=== PATIENT | male | born 1990 | race Hispanic/Latino ===

== ENCOUNTER 2024-10-20 19:45 | Emergency (ER) | payer SELFPAY ==
[~2024-10-20] VITALS: Ht 180.3 cm; Wt 147.9 kg
[2024-10-20] MEDS: IpraTROPium/alBUTERol SULFATE 3 ML SOLUTION IH ONE (20:48)
[2024-10-20 20:49] VITALS: PULSE 92; RESP 18
[2024-10-20] MEDS: dexaMETHasone SOD PHOSPHATE 4 MG/ML 1ML VIAL IM ONE (21:01)
[2024-10-20 21:25] LABS: SARS-CoV-2, RNA, NAAT NEGATIVE SARS CoV-2 (NEGATIVE)
[2024-10-20 21:26] LABS: RAPID GROUP A STREP negative (NEGATIVE)
[2024-10-20 21:34] LABS: INFLUENZA TYPE A Negative For Type A (NEGATIVE); INFLUENZA TYPE B Negative For Type B (NEGATIVE)
[2024-10-20] MEDS ORDERED: AZIT250T9 PO (22:15)
[2024-10-20] MEDS ORDERED: METH4TAB3 PO (22:15)
--- NOTE | 2024-10-20 22:15 | HMCIMG ---
CHEST 1VW HISTORY: Pneumonia COMPARISON: 11/01/2000 FINDINGS: A frontal projection of the chest was obtained. Mild bilateral pulmonary infiltrates are seen may be related to mild pulmonary vascular congestion with possible superimposed pneumonitis. The heart is normal in size. Degenerative changes are seen. No evidence of aortic calcification is seen. IMPRESSION: 1. Mild bilateral pulmonary infiltrates are seen may be related to mild pulmonary vascular congestion with possible superimposed pneumonitis.
--- NOTE | 2024-10-20 22:19 | ERN ---
General Chief Complaint: Cough Stated Complaint: LUNG PROBLEMS, SOB, COUGH Time Seen by MD: 19:48 Time Seen by Midlevel: 19:48 Source: patient History of Present Illness Initial Comments Patient is a 34-year-old male with no significant past medical history presenting to the emergency department with a cough and congestion that has been ongoing for the last couple of days. Patient states his daughter was sick with RSV last week and believes he may have gotten RSV from her. Over the last couple of days he has developed an increase shortness of breath along with cough and subjective fevers at home. He has been using an albuterol inhaler and nebulizer treatment at homes with temporary relief. Denies any other symptoms at this time. Allergies: Coded Allergies: No Known Allergies (Unverified Allergy, Unknown, 10/20/24) Past Medical History Past Medical History: No Pertinent History Past Surgical History: None ROS Dictation CONSTITUTIONAL: Negative except for HPI HEAD/FACE: Negative except for HPI EENT: Negative except for HPI RESPIRATORY: Negative except for HPI GASTROINTESTINAL/ABDOMINAL: Negative except for HPI GENITOURINARY: Negative except for HPI MUSCULOSKELETAL: Negative except for HPI INTEGUMENTARY: Negative except for HPI NEUROLOGICAL/PSYCH: Negative except for HPI HEMATOLOGIC/LYMPHATIC: Negative except for HPI All Systems Negative, Except as noted above. 13 point review of systems assessed and all negative except for above. Physical Exam Physical Exam Dictation Vital Signs reviewed General Appearance: Alert, oriented x 3, no acute distress, well developed, nourished. Head and Face: non-traumatic. Eyes: PERRL, pink conjunctivas, eyelid no trauma, anterior chamber with arcus senilis. Ears: Pinnas intact and no signs of trauma or erythema ear canals clear and no discharge TM no erythema Nose: No discharge, no bleeding. Oropharynx: Mouth normal, tongue pink, pharynx clear,no erythema, tonsils no exudates, no abscesses noted, mucous membrane moist Neck: Supple, non-tender, no thyromegaly, no masses, no JVD, no bruits Breast:Deferred Chest:No tenderness, no crepitus, no paradoxical movement, no retractions Lungs: Expiratory wheezing to bilateral lung ybarra Heart: Regular rate, regular rhythm, no murmur, no gallops Vascular: no peripheral edema, Abdomen: Soft, positive bowel sounds, nondistended, no guarding, nontender, no rebound, no masses no hepatomegaly, no splenomegaly, no Adkins's sign, no hernias. Rectal: Deferred Genital: Deferred Neurological: Normal speech, motor function intact, sensory function intact Musculoskeletal: Neck nontender, full range of motion, back nontender, full range of motion, Extremities: nontender, full range of motion Skin: Color pink, dry, no turgor, no rash, no lacerations, no abrasions, no contusions. Lymphatic: Deferred Results Laboratory and Microbiology Lab and Micro Result Laboratory Tests Test 10/20/24 20:07 Influenza Type A Antigen Negative For Type A Influenza Type B Antigen Negative For Type B SARS-CoV-2, RNA, NAAT NEGATIVE SARS CoV-2 Group A Streptococcus Rapid negative (NEGATIVE) Labs Reviewed?: Yes MDM MDM: Patient is a 34-year-old male with no significant past medical history presenting to the emergency department with a cough and congestion that has been ongoing for the last couple of days. Patient states his daughter was sick with RSV last week and believes he may have gotten RSV from her. Over the last couple of days he has developed an increase shortness of breath along with cough and subjective fevers at home. He has been using an albuterol inhaler and nebulizer treatment at homes with temporary relief. Denies any other symptoms at this time. On physical examination patient is in no acute respiratory distress. His lung examination is remarkable for expiratory wheezing to bilateral lung ybarra. Respiratory swabs are negative. His chest x-ray is consistent with pneumonitis. Patient was given a breathing treatment in the emergency department with improvement of wheezing. Patient will be discharged home with the azithromycin and a Medrol pack for outpatient management. Patient was advised that if he does not get better over the next 48 hours he was to return to the ER for further evaluation. Differential diagnosis: Pneumonia, pneumonitis, acute bronchitis, viral syndrome There are no social concerns with this patient. Prescription drug management Prescriptions will include: Azithromycin and Medrol pack Medical management and examination interpretation discussions were had by me with other qualified healthcare professionals as indicated for the patient's care. ED Course Orders Procedure Category Date Status Time Covid Rna Naat LAB 10/20/24 Complete 20:07 Influenza Type A & B, LAB 10/20/24 Complete Rapid 20:07 Rapid (Group A Strep) LAB 10/20/24 Complete 20:07 Chest 1vw RAD 10/20/24 Taken 20:13 Ipratropium/Albuterol PHA 10/20/24 Complete Neb (Duoneb) 20:30 Dexamethasone 4mg/Ml PHA 10/20/24 Complete 1ml Vial (Dexametha 20:30 Current Medications Medications (Trade) Dose Ordered Sig/Nathan Route PRN Reason Start Time Stop Time Status Last Admin Dose Admin Albuterol (DUOneb) 1 UDVIAL ONCE ONCE IH 10/20/24 20:30 10/20/24 20:31 DC 10/20/24 20:48 Dexamethasone Sodium Phosphate (dexaMETHasone 4MG/ML 1ML VIAL) 10 mg ONCE ONCE IM 10/20/24 20:30 10/20/24 20:31 DC 10/20/24 21:01 Vital Signs Date Time Temp Pulse Resp B/P (MAP) Pulse Ox O2 Delivery O2 Flow Rate FiO2 10/20/24 20:49 92 18 10/20/24 20:03 96 20 170/91 97 [place] [address] IMAGING REPORT Signed PATIENT: ZAKIYA LOYD MR#: [id number] : 1990 SEX: M AGE: 34 LOCATION: [facility] ORDER 13 STATUS: REG ER REPORT#: [id number] SERVICE 12 REASON: r/o pna ORDERING PHYSICIAN: DOM MELENDEZ PROCEDURE: CXR1VW - CHEST 1VW CHEST 1VW HISTORY: Pneumonia COMPARISON: 11/01/2000 FINDINGS: A frontal projection of the chest was obtained. Mild bilateral pulmonary infiltrates are seen may be related to mild pulmonary vascular congestion with possible superimposed pneumonitis. The heart is normal in size. Degenerative changes are seen. No evidence of aortic calcification is seen. IMPRESSION: 1. Mild bilateral pulmonary infiltrates are seen may be related to mild pulmonary vascular congestion with possible superimposed pneumonitis. DICTATED BY: GRETA PURDY MD DATE: 10/20/242212 ELECTRONICALLY SIGNED BY: GRETA PURDY MD DATE: 10/20/242214 DX & DISP Disposition: Discharge Departure Impression: Primary Impression: Pneumonitis Condition: Stable Scripts Methylprednisolone (Medrol) 4 Mg Tab.ds.pk 1 TAB PO AD for 6 Days, #21 TAB 0 Refills 6 on day 1 then reduce by one tablet daily until gone Prov: DOM MELENDEZ 10/20/24 Azithromycin (Azithromycin) 250 Mg Tablet 1 TAB PO AD for 5 Days, #6 TAB 0 Refills 2 the first day followed by 1 for days 2-5 Prov: DOM MELENDEZ 10/20/24 Referrals: SELF,REFERRAL (PCP) Time of Disposition: 22:19 I have reviewed the case, and I agree with, Diagnosis and Plan I performed the substantive portion of the visit. I have reviewed and personally made and approve the management plan that is documented in the note by myself or the MIHIR. I acknowledge for responsibility for the patient's management plan. DOM MELENDEZ Oct 20, 2024 22:19
[2024-10-20 22:40] VITALS: BP 146/85; PULSE 81; RESP 20; O2SAT 100
== END 2024-10-20 22:38 | disposition home or self-care (01) ==
LOC: EDH 19:45
DX: J98.4 Other disorders of lung (principal); Z20.822 Contact with and (suspected) exposure to COVID-19
CPT/HCPCS: 99284; 71045; 87635; 87880; 87804 ×2; 96372; 94640; J1100